=== PATIENT | male | born 1950 | race Caucasian/White ===

== ENCOUNTER 2017-03-02 07:55 | Emergency (ER) | payer OTHER ==
[~2017-03-02] VITALS: Ht 172.7 cm; Wt 83.0 kg
[~2017-03-02 07:55] MED LIST: AMLO5TAB22 PO; BACT800T5 PO; CYCL-36 PO; DIOV160T6 PO
[2017-03-02 07:58] VITALS: BP 168/87; PULSE 76; RESP 15; TEMP 97.6; O2SAT 100
[2017-03-02] MEDS ORDERED: KETOROLAC TROMETHAMINE 30 MG/ML (IVP) VIAL IV PUSH ONE (08:30)
[2017-03-02] MEDS ORDERED: PROCHLORPERAZINE INJ 10 MG/2 ML VIAL IV PUSH ONE (08:30)
--- NOTE | 2017-03-02 08:41 | PD ---
HPI Chief Complaint: Pain: Acute or Chronic Time Seen by Provider: 08:10 Travel History International Travel<30 days: No Contact w/Intl Traveler<30days: No Traveled to known affect area: No History of Present Illness HPI 66yo M with PMH of HTN and chronic neck pain and headache here with c/o his usual headache and neck pain but he also has new pain radiating down in left arm and numbness in his left arm since 02/27/17. Pt had MRI cspine as outpatient at [facility] on 02/24/17 and was informed to follow up with neurosurgery but did not. I looked up his MRI cspine result and it was concerning for 4mm broad disc bulge which displaces the cord posteriorly and may result in early cord compromise at C5-C6. Denies any trauma, fever, chest pain, sob, vomiting, abdominal pain. Pt always has paresthesia in his right hand but the left arm symptoms are new. Pt states headache is diffuse and starts in left neck. States he has daily headache and took tramadol today which did not help. PFSH Past Medical History Arthritis: Yes Anxiety: Yes Cardiovascular Problems: Yes (HTN) Diminished Hearing: No Hypertension: Yes Immunizations Current: Yes Tetanus Vaccination: < 5 Years Influenza Vaccination: Yes Past Surgical History Genitourinary Surgery: Yes (TURP) Other Surgery: Yes (SKIN CANCER ) Social History Alcohol Use: No Tobacco Use: Yes Substance Use: No Allergies-Medications (Allergen,Severity, Reaction): Coded Allergies: Ciprofloxacin (Verified Adverse Reaction, Unknown, Diarrhea, 03/02/17) Reported Meds & Prescriptions Reported Meds & Active Scripts Active Bactrim DS (Sulfamethoxazole-Trimethoprim DS) 1 Tab Tab 1 Tab PO BID 10 Days Flexeril (Cyclobenzaprine HCl) 10 Mg Tab 10 Mg PO Q8HR PRN Reported Amlodipine Besylate 5 mg (Amlodipine Besylate) 5 Mg Tab 1 Tab PO DAILY Diovan (Valsartan) 160 Mg Tab 160 Mg PO DAILY Review of Systems Except as stated in HPI: all other systems reviewed are Neg Physical Exam Narrative GENERAL: 66yo M not in distress. SKIN: Focused skin assessment warm/dry. HEAD: Atraumatic. Normocephalic. EYES: Pupils equal and round. EOMI. No scleral icterus. No injection or drainage. ENT: No nasal bleeding or discharge. Mucous membranes pink and moist. NECK:No midline cervical spine ttp. +Left paraspinal ttp. CARDIOVASCULAR: Regular rate and rhythm. No murmur appreciated. RESPIRATORY: No accessory muscle use. Clear to auscultation. Breath sounds equal bilaterally. GASTROINTESTINAL: Abdomen soft, non-tender, nondistended. MUSCULOSKELETAL: +TTP left trapezius. Limited flexion of left shoulder secondary to pain. No erythema or signs of infection in left shoulder. Deltoid sensation intact. Distal pulses intact. No obvious deformities. No clubbing. No cyanosis. No edema. NEUROLOGICAL: Awake and alert. No obvious cranial nerve deficits. Motor grossly within normal limits. Decreased sensation dorsum of left forearm to finger tips. Lead Application Architect strength equal. Normal speech. PSYCHIATRIC: Appropriate mood and affect; insight and judgment normal. Data Data Last Documented VS Vital Signs Date Time Temp Pulse Resp B/P Pulse Ox O2 Delivery O2 Flow Rate FiO2 03/02/17 09:31 74 16 160/80 97 Room Air 03/02/17 07:58 97.6 Orders Electrocardiogram (03/02/17 ) Ketorolac Inj (Toradol Inj) (03/02/17 08:30) Prochlorperazine Inj (Compazine Inj) (03/02/17 08:30) Dexamethasone Inj (Decadron Inj) (03/02/17 08:45) Ct Brain W/O Iv Contrast(Rout) (03/02/17 ) [facility] Medical Decision Making Medical Screen Exam Complete: Yes Emergency Medical Condition: Yes Interpretation(s) EKG: NSR 74bpm. Normal axis. No ST segment elevation or depression. Differential Diagnosis Cervical cord compression vs. tension headache vs. cervical radiculopathy Narrative Course 66yo M with chronic headache and neck pain comes in with new onset left arm pain and numbness in dorsum of left forearm to finger tips. No arm weakness. CT brain showed no acute intracranial abnormality. 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 Pt reevaluated at bedside after compazine, toradol and dexamethasone and states that headache and neck pain has improved. I reviewed his MRI cspine result and am concern about C5-C6 early cord compression. Discussed with neurosurgeon Dr. Inman and he reviewed the images. States that he can follow up with him as outpatient. Return precautions given. Diagnosis Primary Impression: Cervical disc disease Referrals: Elbert Inman MD call for appointment Disc bulge in C5-C6. Patient Instructions: General Instructions Departure Forms: Tests/Procedures Additional Instructions: Please follow up with your PMD in 3-7 days. Return to the ED if symptoms worsen. Med/Other Pt SpecificInfo: Prescription(s) given Scripts Acetaminophen (Acetaminophen Extra Strength)500 Mg [id number] Mg PO Q6H PRN (PAIN SCALE 1 TO 4) #20 TAB Ref 0 Prov:Trinh Akers DO 03/02/17 Disposition: 01 DISCHARGE HOME Condition: Stable Trinh Akers DO March 02, 2017 08:41
[2017-03-02] MEDS ORDERED: DEXAMETHASONE SOD PHOS 4 MG/ML VIAL IV PUSH ONE (08:45)
[2017-03-02 09:31] VITALS: BP 160/80; PULSE 74; RESP 16; O2SAT 97
--- NOTE | 2017-03-02 10:20 | RADRPT ---
EXAM DATE/TIME: 03/02/2017 09:59 [facility] COMPARISON: CT BRAIN W/O CONTRAST, September 09, 2015, 12:04. INDICATIONS : Head, neck and left shoulder pain for 3 days now. RADIATION DOSE: 39.34 CTDIvol (mGy) MEDICAL HISTORY : Hypertension. skin CA, SURGICAL HISTORY : ENCOUNTER: Initial ACUITY: 1 day PAIN SCALE: 0/10 LOCATION: TECHNIQUE: Multiple contiguous axial images were obtained of the head. Using automated exposure control and adj ustment of the mA and/or kV according to patient size, radiation dose was kept as low as reasonably a chievable to obtain optimal diagnostic quality images. FINDINGS: CEREBRUM: The ventricles are normal for age. No evidence of midline shift, mass lesion, hemorrhage or acute in farction. High density along the anterior aspect of third ventricle consistent with colloid cyst and unchanged. No extra-axial fluid collections are seen. POSTERIOR FOSSA: The cerebellum and brainstem are intact. The 4th ventricle is midline. The cerebellopontine angle i s unremarkable. EXTRACRANIAL: The visualized portion of the orbits is intact. SKULL: The calvaria is intact. No evidence of skull fracture. CONCLUSION: 1. No acute intracranial abnormality. 2. Colloid cyst again seen along the anterior aspect of the third ventricle. Bo Brown MD on March 02, 2017 at 10:16 Board Certified Radiologist. This report was verified electronically.
[2017-03-02] MEDS ORDERED: ACET500T36 PO (10:45)
--- NOTE | 2017-03-02 19:17 | EKG ---
Date Performed: 03/02/2017 Time Performed: 08:43:52 PTAGE: 66 years EKG: Sinus rhythm NORMAL ECG Compared to prior tracing no significant change DOCTOR: Porsche Freire Interpretating Date/Time 03/02/2017 19:16:01
== END 2017-03-02 11:08 | disposition home or self-care (01) ==
LOC: NEPE 07:55
DX: M50.222 Other cervical disc displacement at C5-C6 level (principal); I10 Essential (primary) hypertension; R51 Headache; M54.2 Cervicalgia; Z72.0 Tobacco use
CPT/HCPCS: 70450; 93005; 96374; 96375; 99284; J0780; J1100; J1885

== ENCOUNTER 2017-09-14 13:15 | Emergency (ER) | payer MEDICARE, OTHER ==
[~2017-09-14] VITALS: Ht 172.7 cm; Wt 85.0 kg
[~2017-09-14 13:15] MED LIST changes: +AMLO5TAB2 PO; -AMLO5TAB22 PO; -BACT800T5 PO; +BUTA1CAP5 PO; -CYCL-36 PO; +GABA300C5 PO; +HYDR-3534 PO; +MULTTAB67 PO; +TRAM50TA PO
[2017-09-14 13:16] VITALS: BP 154/83; PULSE 110; RESP 20; TEMP 97.6; O2SAT 99
--- NOTE | 2017-09-14 13:39 | PD ---
HPI Chief Complaint: ENT Complaint Time Seen by Provider: 13:30 Travel History International Travel<30 days: No Contact w/Intl Traveler<30days: No Traveled to known affect area: No History of Present Illness HPI 66-year-old male presents to emergency department complaining of left ear tinnitus and deafness that occurred just prior to arrival. Patient states that he saw Dr. Romero for an upper respiratory/throat discomfort and was prescribed Augmentin September 02. Patient was advised to supervisor picking crew some ear wax softening solution [id number] and start using for his impacted earwax. Patient was using a Q-tip and felt a pain and developed tinnitus patient is concerned about a serious condition and presents to the emergency department today. PFSH Past Medical History Arthritis: Yes Anxiety: Yes Cardiovascular Problems: Yes (HTN) Diminished Hearing: No Hypertension: Yes Immunizations Current: Yes Past Surgical History Genitourinary Surgery: Yes (TURP) Other Surgery: Yes (SKIN CANCER ) Social History Alcohol Use: No Tobacco Use: Yes Substance Use: No Allergies-Medications (Allergen,Severity, Reaction): Coded Allergies: ciprofloxacin (Unverified Adverse Reaction, Unknown, Diarrhea, 09/14/17) Reported Meds & Prescriptions Reported Meds & Active Scripts Active Ciprodex Otic Drops (Ciprofloxacin-Dexamethasone Otic Drops) 0.3-0.1% Susp 4 Drop LEFT EAR BID Reported Hydrocodone-Acetaminophen 7.5 Mg-325 Mg Tab 1 Tab PO Q12HR PRN Multiple Vitamin 1 Tab 1 Tab PO DAILY Spustrculd-Lggijmchwuaif-Ravybfsi 50-300-40 Mg Cap 1 Cap PO DIRECTED PRN Do not exceed 6 capsules/day. Tramadol (Tramadol HCl) 50 Mg Tab 50 Mg PO Q8H PRN Amlodipine (Amlodipine Besylate) 5 Mg Tab 5 Mg PO DAILY Diovan (Valsartan) 160 Mg Tab 160 Mg PO DAILY Review of Systems Except as stated in HPI: all other systems reviewed are Neg Physical Exam Narrative GENERAL: WD, WN in NAD, pleasant SKIN: Warm and dry. HEAD: Normocephalic. EYES: No scleral icterus. No injection or drainage. ENT: Mucosa pink and moist. No erythema or exudates. No uvular edema. No uvular , palatal, or tonsillar deviation. Airway patent. Nasal turbinates appear normal without nasal blood, purulent drainage or septal hematoma. Ears: TM intact right, no bulging; left ear no discernible tympanic membrane, no excessive cerumen. No obvious erythema or infectious process. NECK: Supple, trachea midline. No JVD or lymphadenopathy. CARDIOVASCULAR: Regular rate and rhythm without murmurs, gallops, or rubs. RESPIRATORY: Breath sounds equal bilaterally. No accessory muscle use. MUSCULOSKELETAL: No cyanosis, or edema. BACK: Nontender without obvious deformity. No CVA tenderness. Data Data Last Documented VS Vital Signs Date Time Temp Pulse Resp B/P (MAP) Pulse Ox O2 Delivery O2 Flow Rate FiO2 09/14/17 14:20 09/14/17 13:16 97.6 110 20 99 Room Air Orders Orders Ed Discharge Order (09/14/17 13:58) MDM Medical Decision Making Medical Screen Exam Complete: Yes Emergency Medical Condition: Yes Differential Diagnosis Tympanic membrane ruptured versus otitis media versus otitis externa Narrative Course 66-year-old male presents to emergency department complaining of left ear tinnitus and deafness that occurred just prior to arrival. Patient states that he saw Dr. Romero for an upper respiratory/throat discomfort and was prescribed Augmentin September 02. Patient was advised to supervisor picking crew some ear wax softening solution [id number] and start using for his impacted earwax. Patient was using a Q-tip and felt a pain and developed tinnitus patient is concerned about a serious condition and presents to the emergency department today. Vital signs stable Physical exam- likely tympanic membrane rupture left ear. Patient has difficulty hearing a whisper but does hear a snap from about 1 foot away Patient prescribed Ciprodex eardrops for pain and potential infectious process. Advised on Care of potential tympanic membrane rupture. Advised patient will Dr. Romero today regarding treatment and evaluation. Avoid excessive water exposure or other foreign objects in the ear Diagnosis Primary Impression: Tympanic membrane disorder Qualified Codes: H73.92 - Unspecified disorder of tympanic membrane, left ear Referrals: Ear / Nose / Throat Specialist Additional Instructions: Follow-up with your ENT doctor TUESDAY. Avoid water exposure. Use ear antibiotic drops as prescribed. Scripts Ciprofloxacin-Dexamethasone Otic Drops (Ciprodex Otic Drops) 0.3-0.1% Susp 4 DROP LEFT EAR BID for Infection, #1 BOTTLE 0 Refills Prov: Wendy Smart MD 09/14/17 Disposition: 01 DISCHARGE HOME Condition: Stable Tiffanie Cagle Sep 14, 2017 13:39
[2017-09-14] MEDS ORDERED: HYDR-3580 PO (13:43)
[2017-09-14] MEDS ORDERED: CIPR0.3S LEFT EAR (13:58)
== END 2017-09-14 14:21 | disposition home or self-care (01) ==
LOC: NEPD 13:15
DX: H73.92 Unspecified disorder of tympanic membrane, left ear (principal); I10 Essential (primary) hypertension
CPT/HCPCS: 99283

== ENCOUNTER 2018-03-08 09:37 | Observation (INO) | payer MEDICARE ==
[~2018-03-08] VITALS: Ht 172.7 cm; Wt 86.0 kg
[2018-03-08] VITALS (9 sets, daily range): BP systolic 120–179; BP diastolic 64–88; PULSE 57–76; RESP 16–19; TEMP 97.8–98.3; O2SAT 97–99
[~2018-03-08 09:37] MED LIST changes: +CIPR0.3S LEFT EAR; -GABA300C5 PO; -HYDR-3534 PO; +HYDR-3580 PO
[2018-03-08] MEDS ORDERED: TRAZ100T10 PO (10:11)
[2018-03-08] MEDS ORDERED: CLON.5 PO (10:11)
[2018-03-08] MEDS ORDERED: HYDR-3583 PO (10:11)
[2018-03-08] MEDS ORDERED: SODIUM CHLORID 0.9% 500 ML INJ 500 ML IV ONE (11:30)
[2018-03-08] MEDS ORDERED: ASPIRIN 81 MG CHEW TAB PO ONE (11:30)
[2018-03-08] MEDS ORDERED: SODIUM CHLORIDE 0.9% FLUSH 10 ML FLUSH IVF PRN (11:30)
[2018-03-08 12:21] LABS: AUTOMATED NEUTROPHIL # 6.6 TH/MM3 (1.8-7.7); BASOPHIL % 0.4 % (0.0-2.0); EOSINOPHIL # 0.1 TH/MM3 (0-0.4); EOSINOPHIL % 0.6 % (0.0-4.0); HEMATOCRIT 44.7 % (39.0-51.0); HEMOGLOBIN 15.6 GM/DL (13.0-17.0); LYMPH % 18.6 % (9.0-44.0); LYMPHOCYTE # 1.7 TH/MM3 (1.0-4.8); MEAN CORPUSCULAR HEMOGLOBIN 33.4 PG (27.0-34.0); MEAN CORPUSCULAR HGB CONC 34.8 % (32.0-36.0); MEAN PLATELET VOLUME 8.3 FL (7.0-11.0); MONO % 8.2 % (0.0-8.0); MONOCYTE # 0.7 TH/MM3 (0-0.9); NEUT % 72.2 % (16.0-70.0); PLATELET COUNT 263 TH/MM3 (150-450); RED BLOOD COUNT 4.65 MIL/MM3 (4.50-5.90); RED CELL DISTRIBUTION WIDTH 13.3 % (11.6-17.2); WHITE BLOOD COUNT 9.1 TH/MM3 (4.0-11.0)
[2018-03-08 12:39] LABS: PROTHROMBIN TIME - PATIENT 9.9 SEC (9.8-11.6)
[2018-03-08 12:49] LABS: ALBUMIN 3.7 GM/DL (3.4-5.0); ALKALINE PHOSPHATASE 132 U/L (45-117); ALT (GPT) 41 U/L (12-78); AST (GOT) 28 U/L (15-37); BLOOD UREA NITROGEN 9 MG/DL (7-18); CALCIUM 9.1 MG/DL (8.5-10.1); CREATININE 0.92 MG/DL (0.60-1.30); GLOMERULAR FILTRATION RATE 82 ML/MIN (>89); GLUCOSE,RANDOM 104 MG/DL (74-106); MAGNESIUM 2.3 MG/DL (1.5-2.5); SODIUM (NA) 140 MEQ/L (136-145); TOTAL BILIRUBIN ADULT 0.5 MG/DL (0.2-1.0); TOTAL PROTEIN 8.5 GM/DL (6.4-8.2)
[2018-03-08 12:50] LABS: BICARBONATE 25.2 MEQ/L (21.0-32.0); CHLORIDE 105 MEQ/L (98-107); TROPONIN I LESS THAN 0.02 NG/ML (0.02-0.05)
--- NOTE | 2018-03-08 12:56 | PD ---
HPI Chief Complaint: Syncope/Near-Syncope Time Seen by Provider: 10:48 Travel History International Travel<30 days: No Contact w/Intl Traveler<30days: No Traveled to known affect area: No History of Present Illness HPI Is a 67-year-old male presents emergency department complaining of chest pain and near syncope. He states he had intermittent vertigo for a while, he describes not really room spinning symptoms but more of a generalized lightheadedness. He states over the weekend he was mowing the lawn and he developed near syncopal feelings of shortness of breath. He had to stop several times due to the symptoms. Since then he has had intermittent pressure- like chest discomfort that has been very mild. He has never had symptoms like this before. He has frequent daily headaches that is attributed to his cervical spine problems and is due to have surgery. He has had the intermittent dizziness for a while as well. He otherwise had been feeling generally well and healthy. 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 History Past Medical History Narrative Medical Headache Hypertension Tetanus Vaccination: < 5 Years Influenza Vaccination: No Social History Alcohol Use: Yes (DAILY) Tobacco Use: Yes (CLIPPERS) Allergies-Medications (Allergen,Severity, Reaction): Coded Allergies: ciprofloxacin (Unverified Adverse Reaction, Unknown, Diarrhea, 03/08/18) Reported Meds & Prescriptions Reported Meds & Active Scripts Active Reported Trazodone (Trazodone HCl) 100 Mg Tablet 100 Mg PO HS Klonopin (Clonazepam) 0.5 Mg Tab 0.5 Mg PO BID Hydrocodone-Acetaminophen 10-325 mg Tab 1 Tab PO Q6H PRN Multiple Vitamin 1 Tab 1 Tab PO DAILY Abhqqkjsev-Mtslgimtmlnvp-Znkxhwef 50-300-40 Mg Cap 1 Cap PO DIRECTED PRN Do not exceed 6 capsules/day. Amlodipine (Amlodipine Besylate) 5 Mg Tab 5 Mg PO DAILY Diovan (Valsartan) 160 Mg Tab 160 Mg PO DAILY Review of Systems Except as stated in HPI: all other systems reviewed are Neg Physical Exam Narrative GENERAL: Well-appearing 67-year-old man, no acute distress. SKIN: Focused skin assessment warm/dry. HEAD: Atraumatic. Normocephalic. EYES: Pupils equal and round. No scleral icterus. No injection or drainage. ENT: No nasal bleeding or discharge. Mucous membranes pink and moist. NECK: Trachea midline. No JVD. CARDIOVASCULAR: Regular rate and rhythm. No murmur appreciated. RESPIRATORY: No accessory muscle use. Clear to auscultation. Breath sounds equal bilaterally. GASTROINTESTINAL: Abdomen soft, non-tender, nondistended. Hepatic and splenic margins not palpable. MUSCULOSKELETAL: No obvious deformities. No clubbing. No cyanosis. No edema. NEUROLOGICAL: Awake and alert. No obvious cranial nerve deficits. Motor grossly within normal limits. Normal speech. PSYCHIATRIC: Appropriate mood and affect; insight and judgment normal. Data Data Last Documented VS Vital Signs Date Time Temp Pulse Resp B/P (MAP) Pulse Ox O2 Delivery O2 Flow Rate FiO2 03/08/18 12:09 75 18 179/86 (117) 98 Room Air 03/08/18 09:40 98.3 Orders Orders Electrocardiogram (03/08/18 09:49) Electrocardiogram (03/08/18 11:18) Complete Blood Count With Diff (03/08/18 11:18) Comprehensive Metabolic Panel (03/08/18 11:18) Magnesium (Mg) (03/08/18 11:18) Prothrombin Time / Inr (Pt) (03/08/18 11:18) Act Partial Throm Time (Ptt) (03/08/18 11:18) Troponin I (03/08/18 11:18) Ecg Monitoring (03/08/18 11:18) Iv Access Insert/Monitor (03/08/18 11:18) Oximetry (03/08/18 11:18) Oxygen Administration (03/08/18 11:18) Aspirin Chew (Aspirin Chew) (03/08/18 11:30) Sodium Chloride 0.9% Flush (Ns Flush) (03/08/18 11:30) Sodium Chlorid 0.9% 500 Ml Inj (Ns 500 M (03/08/18 11:30) Chest, Pa & Lat (03/08/18 11:18) Labs Laboratory Tests Test 03/08/18 12:05 White Blood Count 9.1 TH/MM3 Red Blood Count 4.65 MIL/MM3 Hemoglobin 15.6 GM/DL Hematocrit 44.7 % Mean Corpuscular Volume 96.0 FL Mean Corpuscular Hemoglobin 33.4 PG Mean Corpuscular Hemoglobin Concent 34.8 % Red Cell Distribution Width 13.3 % Platelet Count 263 TH/MM3 Mean Platelet Volume 8.3 FL Neutrophils (%) (Auto) 72.2 % Lymphocytes (%) (Auto) 18.6 % Monocytes (%) (Auto) 8.2 % Eosinophils (%) (Auto) 0.6 % Basophils (%) (Auto) 0.4 % Neutrophils # (Auto) 6.6 TH/MM3 Lymphocytes # (Auto) 1.7 TH/MM3 Monocytes # (Auto) 0.7 TH/MM3 Eosinophils # (Auto) 0.1 TH/MM3 Basophils # (Auto) 0.0 TH/MM3 CBC Comment DIFF FINAL Differential Comment Prothrombin Time 9.9 SEC Prothromb Time International Ratio 1.0 RATIO Activated Partial Thromboplast Time 23.9 SEC Blood Urea Nitrogen 9 MG/DL Creatinine 0.92 MG/DL Random Glucose 104 MG/DL Total Protein 8.5 GM/DL Albumin 3.7 GM/DL Calcium Level 9.1 MG/DL Magnesium Level 2.3 MG/DL Alkaline Phosphatase 132 U/L Aspartate Amino Transf (AST/SGOT) 28 U/L Alanine Aminotransferase (ALT/SGPT) 41 U/L Total Bilirubin 0.5 MG/DL Sodium Level 140 MEQ/L Potassium Level 4.6 MEQ/L Chloride Level 105 MEQ/L Carbon Dioxide Level 25.2 MEQ/L Anion Gap 10 MEQ/L Estimat Glomerular Filtration Rate 82 ML/MIN Troponin I LESS THAN 0.02 NG/ML MDM Medical Decision Making Medical Screen Exam Complete: Yes Emergency Medical Condition: Yes Interpretation(s) My review of EKG: Normal sinus rhythm at rate of 75, normal axis, normal intervals, no acute ischemia. LABS: CBC is unremarkable CMP is unremarkable Troponins negative Coags unremarkable Chest x-ray: Pulmonary hyperaeration characters of COPD. No evidence of acute cardiopulmonary process. Differential Diagnosis ACS, ischemia, arrhythmia, migraines, vertigo, other Narrative Course Medical decision making INITIAL co-owns a 67-year-old man presents emerged department for evaluation for near-syncope shortness of breath with intermittent chest pressure. Symptoms concerning for ACS but not definitively so. EKG is unremarkable. He has a long-standing history of some vertigo lightheadedness and chronic daily headaches that I think are cervicogenic. Would recommend observation of the chest pain center, outpatient follow-up. Diagnosis Primary Impression: Chest pain Admitting Information Admitting Physician Requests: Observation Ken Peguero MD March 08, 2018 12:56
--- NOTE | 2018-03-08 12:59 | RADRPT ---
EXAM DATE/TIME: 03/08/2018 12:28 [facility] COMPARISON: No previous studies available for comparison. INDICATIONS : Mid sternal chest pains with shortness of breath. MEDICAL HISTORY : None. SURGICAL HISTORY : None. ENCOUNTER: Initial ACUITY: 3 days PAIN SCORE: 10/10 LOCATION: Bilateral chest FINDINGS: PA and lateral views of the chest demonstrate the lungs to be symmetrically hyperaerated without evid ence of mass, infiltrate or effusion. The cardiomediastinal contours are unremarkable. Osseous stru ctures are intact. CONCLUSION: 1. Pulmonary hyperaeration characteristic of COPD. 2. No evidence of acute cardiopulmonary process. Jt Whittaker MD on March 08, 2018 at 12:56 Board Certified Radiologist. This report was verified electronically.
[2018-03-08] MEDS ORDERED: ACETAMINOPHEN/HYDROcodone 325 MG/10 MG TAB PO PRN (15:30)
[2018-03-08] MEDS ORDERED: RESP: ALBUTEROL 2.5 MG/IPRATROPIUM 0.5 MG NEB (PRN) INH (15:30)
[2018-03-08] MEDS ORDERED: clonazePAM 0.5 MG TAB PO PRN (15:30)
[2018-03-08] MEDS ORDERED: ACETAMINOPHEN/HYDROcodone 325 MG/7.5 MG TAB PO PRN (15:30)
[2018-03-08] MEDS ORDERED: ALPRAZolam 0.25 MG TAB PO PRN (15:30)
[2018-03-08] MEDS ORDERED: ACETAMINOPHEN 500 MG CPLT PO PRN (15:30)
[2018-03-08] MEDS ORDERED: cloNIDine HCL 0.1 MG TAB PO PRN (15:30)
--- NOTE | 2018-03-08 15:30 | HHI.HP ---
[facility] Primary Care Physician Darek Payan M.D. Chief Complaint Chest pain History of Present Illness This is a 67-year-old male with history of hypertension, tobacco abuse, and cervical disc disease that presents to ED via private vehicle with complaint of chest discomfort. Patient states that he has been having 2 weeks of intermittent diffuse chest tightness. States that it is not exertional. Is having 3-4 times over the last 2 weeks. When it has occurred is lasted about 10 -15 minutes. He has not been short of breath, nauseous, or diaphoretic with the symptoms. Patient also states that he mows his own yard. He usually can mow without stopping. However Tuesday, he had to stop 3 times to finish the job. States that he was getting dizzy and short of breath. Denied any type of chest discomfort while mowing the grass. He denies history of heart disease. States he had a stress test many years ago with Dr. Orellana and that it was normal. Currently denies chest discomfort. Denies recent illness. Denies fevers or chills. He has history of cervical disc disease and is scheduled to have a cervical fusion in April. Review of Systems General: Patient denies fevers, chills, and recent travel. HEENT: Patient denies headache, sore throat, difficulty swallowing. Cardiovascular: Has the chest discomfort as mentioned above. Denies sensation of heart beating rapidly or irregularly. No syncope. Denies diaphoresis. Respiratory: Denies shortness of breath or inspirational chest discomfort. Denies coughing wheezing or hemoptysis. GI: Patient denies nausea, vomiting, diarrhea, abdominal pain, bloody stools. Musculoskeletal: Chronic neck pain. Patient denies joint pain or edema. Denies calf pain or edema. Neurovascular: Patient denies numbness, tingling, weakness in extremities. Denies headache but he does have issues with chronic headaches. Endocrine: Denies polyuria and polydipsia. Hematologic: Denies easy bruising. Skin: Denies rash or itching. Past Family Social History Allergies: Coded Allergies: ciprofloxacin (Unverified Adverse Reaction, Unknown, Diarrhea, 03/08/18) Past Medical History Hypertension, tobacco abuse, chronic headaches, cervical disc disease. Denies hyperlipidemia, diabetes, and CAD. Past Surgical History Noncontributory. Reported Medications Reported Meds & Active Scripts Active Reported Trazodone (Trazodone HCl) 100 Mg Tablet 100 Mg PO HS Klonopin (Clonazepam) 0.5 Mg Tab 0.5 Mg PO BID Hydrocodone-Acetaminophen 10-325 mg Tab 1 Tab PO Q6H PRN Multiple Vitamin 1 Tab 1 Tab PO DAILY Kdmdwpulko-Fhcolkqalvzar-Qnivrgyo 50-300-40 Mg Cap 1 Cap PO DIRECTED PRN Do not exceed 6 capsules/day. Amlodipine (Amlodipine Besylate) 5 Mg Tab 5 Mg PO DAILY Diovan (Valsartan) 160 Mg Tab 160 Mg PO DAILY Active Ordered Medications Current Medications Medications (Trade) Dose Ordered Sig/Justus Route Start Time Stop Time Status Last Admin (NS Flush) 2 ml UNSCH PRN IVF 03/08/18 11:30 (Tylenol) 500 mg Q4H PRN PO 03/08/18 15:30 ([place] 7.5-325 Mg) 1 tab Q4H PRN PO 03/08/18 15:30 (Protonix) 40 mg DAILY PO 03/08/18 15:30 (Aspirin) 325 mg DAILY PO 03/09/18 09:00 (Xanax) 0.25 mg Q8H PRN PO 03/08/18 15:30 (Duoneb Neb) 1 ampule Q4HR NEB PRN INH 03/08/18 15:30 (Catapres) 0.1 mg Q4H PRN PO 03/08/18 15:30 Family History Denies family history of CAD. Social History Smokes three-quarter packs of cigarettes daily for 50 years. He has on average 6-8 beers per day. Smokes occasional marijuana. Physical Exam Vital Signs Vital Signs Date Time Temp Pulse Resp B/P (MAP) Pulse Ox O2 Delivery O2 Flow Rate FiO2 03/08/18 15:07 70 18 168/88 (114) 98 Room Air 03/08/18 12:09 75 18 179/86 (117) 98 Room Air 03/08/18 12:09 98 Room Air 03/08/18 10:05 71 18 98 Room Air 03/08/18 09:59 76 18 159/87 (111) 98 Room Air 03/08/18 09:40 98.3 73 19 170/77 (108) 97 Physical Exam GENERAL: This is a well-nourished, well-developed patient, in no apparent distress. Patient speaks in clear complete sentences. Patient is pleasant. HEENT: Head is atraumatic and normocephalic. Neck is supple without lymphadenopathy and trachea is midline. No JVD or carotid bruits. CARDIOVASCULAR: Regular rate and rhythm without murmurs, gallops, or rubs. RESPIRATORY: Clear to auscultation. Breath sounds equal bilaterally. No wheezes , rales, or rhonchi. Chest wall is nontender. No use of accessory muscles. GASTROINTESTINAL: Abdomen is nontender, nondistended. Abdomen soft. No obvious pulsatile mass or bruit. No CVA tenderness. Strong femoral pulses bilaterally. Normal bowel sounds in all quadrants. MUSCULOSKELETAL: Patient is moving upper and lower extremities freely. No calf tenderness or edema, no Homans sign. Strong pulses in upper and lower extremities. NEUROLOGICAL: Patient is alert and oriented. Cranial nerves 2-12 are grossly intact. No focal deficits and speech is clear. SKIN: No rash and turgor is normal. Laboratory Laboratory Tests Test 03/08/18 12:05 White Blood Count 9.1 Red Blood Count 4.65 Hemoglobin 15.6 Hematocrit 44.7 Mean Corpuscular Volume 96.0 Mean Corpuscular Hemoglobin 33.4 Mean Corpuscular Hemoglobin Concent 34.8 Red Cell Distribution Width 13.3 Platelet Count 263 Mean Platelet Volume 8.3 Neutrophils (%) (Auto) 72.2 Lymphocytes (%) (Auto) 18.6 Monocytes (%) (Auto) 8.2 Eosinophils (%) (Auto) 0.6 Basophils (%) (Auto) 0.4 Neutrophils # (Auto) 6.6 Lymphocytes # (Auto) 1.7 Monocytes # (Auto) 0.7 Eosinophils # (Auto) 0.1 Basophils # (Auto) 0.0 CBC Comment DIFF FINAL Differential Comment Prothrombin Time 9.9 Prothromb Time International Ratio 1.0 Activated Partial Thromboplast Time 23.9 Blood Urea Nitrogen 9 Creatinine 0.92 Random Glucose 104 Total Protein 8.5 Albumin 3.7 Calcium Level 9.1 Magnesium Level 2.3 Alkaline Phosphatase 132 Aspartate Amino Transf (AST/SGOT) 28 Alanine Aminotransferase (ALT/SGPT) 41 Total Bilirubin 0.5 Sodium Level 140 Potassium Level 4.6 Chloride Level 105 Carbon Dioxide Level 25.2 Anion Gap 10 Estimat Glomerular Filtration Rate 82 Troponin I LESS THAN 0.02 Result Diagram: 03/08/18 1205 03/08/18 1205 Imaging Last 48 hours Impressions Chest X-Ray 03/08/18 1118 Signed Impressions: Service Date/Time: Thursday, March 08, 2018 12:28 - CONCLUSION: 1. Pulmonary hyperaeration characteristic of COPD. 2. No evidence of acute cardiopulmonary process. Jt Whittaker MD Course Initial EKG is sinus rhythm without significant ST segment depressions or elevations. Caprini VTE Risk Assessment Caprini VTE Risk Assessment: Mod/High Risk (score >= 2) Caprini Risk Assessment Model Point Value = 1 Point Value = 2 Point Value = 3 Point Value = 5 Age 41-60 Minor surgery BMI > 25 kg/m2 Swollen legs Varicose veins or History of unexplained or recurrent spontaneous Oral contraceptives or hormone replacement Sepsis (< 1 month) Serious lung disease, including pneumonia (< 1 month) Abnormal pulmonary function Acute myocardial infarction Congestive heart failure (< 1 month) History of inflammatory bowel disease Medical patient at bed rest Age 61-74 Arthroscopic surgery Major open surgery (> 45 min) Laparoscopic surgery (> 45 min) Malignancy Confined to bed (> 72 hours) Immobilizing plaster cast Central venous access Age >= 75 History of VTE Family history of VTE Factor V Leiden Prothrombin [id number] Lupus anticoagulant Anticardiolipin antibodies Elevated serum homocysteine Heparin-induced thrombocytopenia Other congenital or acquired thrombophilia Stroke (< 1 month) Elective arthroplasty Hip, pelvis, or leg fracture Acute spinal cord injury (< 1 month) Prophylaxis Regimen Total Risk Factor Score Risk Level Prophylaxis Regimen 0-1 Low Early ambulation 2 Moderate Order ONE of the following: *Sequential Compression Device (SCD) *Heparin 5000 units SQ BID 3-4 Higher Order ONE of the following medications: *Heparin 5000 units SQ TID *Enoxaparin/Lovenox 40 mg SQ daily (WT < 150 kg, CrCl > 30 mL/min) *Enoxaparin/Lovenox 30 mg SQ daily (WT < 150 kg, CrCl > 10-29 mL/min) *Enoxaparin/Lovenox 30 mg SQ BID (WT < 150 kg, CrCl > 30 mL/min) AND/OR *Sequential Compression Device (SCD) 5 or more Highest Order ONE of the following medications: *Heparin 5000 units SQ TID (Preferred with Epidurals) *Enoxaparin/Lovenox 40 mg SQ daily (WT < 150 kg, CrCl > 30 mL/min) *Enoxaparin/Lovenox 30 mg SQ daily (WT < 150 kg, CrCl > 10-29 mL/min) *Enoxaparin/Lovenox 30 mg SQ BID (WT < 150 kg, CrCl > 30 mL/min) AND *Sequential Compression Device (SCD) Assessment and Plan Assessment and Plan * Chest pain: Patient will continue to have serial cardiac enzymes and EKGs for ruling out purposes. He will be seen by Dr. Jayden Orellana of cardiology in the chest pain center. Patient likely have a [place] protocol ETT in the morning if he rules out. Patient would be discharged home if the stress test is nonischemic with instructions to follow-up with PCP. He should return to ED for interval issues. * Hypertension: Continue current medication. * Tobacco abuse: Patient has been counseled on the importance of smoking cessation. * Chronic neck pain: Patient states he has history of cervical disc disease and is scheduled for cervical fusion in April. Will continue his medication. Patient is stable at this time. He is agreeable to this plan. John Fritz March 08, 2018 15:30
[2018-03-08] MEDS: PANTOPRAZOLE SOD 40 MG DELAYED RELEASE TAB PO SCH (16:06)
[2018-03-08 16:14] LABS: TROPONIN I LESS THAN 0.02 NG/ML (0.02-0.05)
[2018-03-08 18:59] LABS: TROPONIN I LESS THAN 0.02 NG/ML (0.02-0.05)
[2018-03-08] MEDS ORDERED: traZODone HCL 100 MG TAB PO SCH (21:00)
--- NOTE | 2018-03-08 22:11 | EKG ---
Date Performed: 03/08/2018 Time Performed: 09:49:23 PTAGE: 67 years EKG: Sinus rhythm NORMAL ECG INTERPRETATION BASED ON A DEFAULT AGE OF 40 YEARS PREVIOUS TRACING : 03/02/2017 08.43 Since the previous tracing, no significant change not ed DOCTOR: Joel Ramos Interpretating Date/Time 03/08/2018 22:09:43
[2018-03-09 00:26] VITALS: PULSE 55
[2018-03-09 03:24] VITALS: BP 135/67; PULSE 60; RESP 16; TEMP 98.5; O2SAT 97
[2018-03-09 04:04] VITALS: PULSE 61
[2018-03-09 07:07] VITALS: PULSE 58
--- NOTE | 2018-03-09 07:22 | EKG ---
Date Performed: 03/08/2018 Time Performed: 15:56:23 PTAGE: 67 years EKG: SINUS BRADYCARDIA BORDERLINE ECG Since PREVIOUS TRACING , no significant change noted PREVIOUS TRACIN03/08/2018 09.49 DOCTOR: Katia Shetty Interpretating Date/Time 03/09/2018 07:19:59
--- NOTE | 2018-03-09 07:22 | EKG ---
Date Performed: 03/08/2018 Time Performed: 18:18:56 PTAGE: 67 years EKG: SINUS BRADYCARDIA BORDERLINE ECG Since PREVIOUS TRACING , no significant change noted PREVIOUS TRACIN03/08/2018 15.56 DOCTOR: Katia Shetty Interpretating Date/Time 03/09/2018 07:20:26
--- NOTE | 2018-03-09 08:40 | HHI.DCPOC ---
Discharge Care Plan Diagnosis: (1) Chest pain (2) Hypertension (3) Tobacco abuse Goals to Promote Your Health * To prevent worsening of your condition and complications * To maintain your health at the optimal level Directions to Meet Your Goals Take your medications as prescribed Follow your dietary instruction Follow activity as directed Keep your appointments as scheduled Take your immunizations and boosters as scheduled If your symptoms worsen call your PCP, if no PCP go to Urgent Care Center or Emergency Room Smoking is Dangerous to Your Health. Avoid second hand smoke Call the 24-hour hour crisis hotline for domestic abuse at John Fritz March 09, 2018 08:40
[2018-03-09] MEDS: PANTOPRAZOLE SOD 40 MG DELAYED RELEASE TAB PO SCH (08:59)
[2018-03-09] MEDS ORDERED: ASPIRIN 325 MG TAB PO SCH (09:00)
[2018-03-09] MEDS ORDERED: amLODIPine BESYLATE 5 MG TAB PO SCH (09:00)
[2018-03-09] MEDS ORDERED: MULTIVITAMIN TAB PO SCH (09:00)
[2018-03-09] MEDS ORDERED: VALSARTAN 160 MG TAB PO SCH (09:00)
--- NOTE | 2018-03-09 22:09 | TR ---
Date Performed: 03/09/2018 Time Performed: 08:13:22 DOCTOR: Katia Shetty DRUG LIST: CLINICAL HISTORY: REASON FOR TEST: Chest pain REASON FOR ENDING: OBSERVATION: CONCLUSION: SALV[place] PROTOCOL. NO CP. TEST STOPPED AFTER EXCEEDING GOAL HR SECONDARY TO SOB AND LEG FATIGUE.Maximum YY=109 Max HR Achieved=90.0% Maximum EE=494/96 Total Exercise Time=7:02 COMMENTS: No ischemia
== END 2018-03-09 10:55 | disposition home or self-care (01) ==
LOC: NEPE 09:37 → NEDA 13:35 → NEPFCDU 15:22
PROVIDERS: ADMIT Internal Medicine Cardiovascular Disease; ATTEND Internal Medicine Cardiovascular Disease
DX: R07.89 Other chest pain (principal); I10 Essential (primary) hypertension; F17.200 Nicotine dependence, unspecified, uncomplicated; R55 Syncope and collapse; R51 Headache; M50.90 Cervical disc disorder, unspecified, unspecified cervical region; R06.02 Shortness of breath
CPT/HCPCS: 71046; 80053; 82550; 83735; 84484; 85025; 85610; 85730; 93005; 93017; 96360; 99285; G0378; J7040